=== PATIENT | male | born 1975 | race Caucasian/White ===

== ENCOUNTER 2018-04-01 14:20 | Emergency (ER) | payer BC ==
[2018-04-01 15:17] LABS: Potassium 4.3 mmol/L (3.5-5.1)
--- NOTE | 2018-04-01 15:37 | RAD REPORT ---
EXAM DESCRIPTION: CT - Stone Protocol - 04/01/2018 3:03 pm CLINICAL HISTORY: Right-sided abdominal and flank pain COMPARISON: None. TECHNIQUE: Axial 5 mm thick images were obtained without oral or IV contrast. The [id number] span s the entirety of the system including uppermost abdomen and lung bases. All CT scans are performed using dose optimization technique as appropriate and may include automated exposure control or mA/KV adjustment according to patient size. FINDINGS: Mild right-sided hydronephrosis is present secondary to a 4 mm stone right mid ureter. Rig ht kidney is edematous. There is minimal stranding in the perinephric fat. No other obstructing or no nobstructing calculi seen. No calculus within the contracted urinary bladder. No suspicious renal mas ses. Isodense masses and pyelonephritis are not excluded on a stone protocol CT scan. No left-sided o bstructing or nonobstructing calculi. Prostate gland and seminal vesicles are normal. Imaged portions of the liver, spleen and pancreas show no suspicious findings on non-contrast imaging . Patient has a diffuse fatty infiltration of the liver. Contracted gallbladder shows no suspicious f inding. No biliary tree dilatation. No significant adrenal finding. No suspicious bowel findings. Sigmoid diverticulosis present without diverticulitis. No mass or bulky lymphadenopathy. Patient has bilateral fat filled inguinal hernias. No free air, lalit e fluid or inflammatory stranding. No significant bony abnormality. IMPRESSION: Mild right-sided hydronephrosis secondary to a 4 mm right mid ureter stone. No other obs tructing or nonobstructing calculi. On a KUB projection the obstructing calculus is superimposed on the superior right sacral ala margin. Diffuse fatty infiltration of the liver. Isodense masses and pyelonephritis are not excluded on stone protocol technique.
[2018-04-01] MEDS ORDERED: KETOROLAC 30 MG/ML INJ ONE (15:43)
[2018-04-01] MEDS ORDERED: NA CHLORIDE 0.9% 1,000 ML ONE (15:43)
[2018-04-01] MEDS ORDERED: MAGNESIUM SULFATE 1 gm IVPB 1 GM/100 ML BAG IV ONE (15:51)
[2018-04-01] MEDS ORDERED: TAMSULOSIN 0.4 MG SR CAP ONE (15:51)
--- NOTE | 2018-04-01 16:28 | EDPHYS ---
Physician Documentation [facility] Name: Ferdinand Villagran Age: 42 yrs Sex: Male : 1975 Arrival Date: 04/01/2018 Time: 14:21 Bed 20 Private MD: Out, [facility] ED Physician Kamlesh Pierce HPI: 04/01 15:44 This 42 yrs old Male presents to ER via Ambulatory with complaints of Possible Kidney kb Stone. 15:44 The patient complains of pain in the right flank. The pain does not radiate. Onset: The kb symptoms/episode began/occurred this morning. Modifying factors: The symptoms are alleviated by nothing. the symptoms are aggravated by nothing. Associated signs and symptoms: The patient has no apparent associated signs or symptoms. Severity of pain: At its worst the pain was moderate in the emergency department the pain is unchanged. The patient has experienced a previous episode. The patient has not recently seen a physician. 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 - Social history:: Smoking status: Patient uses tobacco products, smokes one-half pack cigarettes per day. - Ebola Screening: : Patient denies travel to an Ebola-affected area in the 21 days before illness onset. ROS: 15:43 Constitutional: Negative for fever, chills, and weight loss, Cardiovascular: Negative kb for chest pain, palpitations, and edema, Respiratory: Negative for shortness of breath, cough, wheezing, and pleuritic chest pain, Abdomen/GI: Negative for abdominal pain, nausea, vomiting, diarrhea, and constipation, MS/Extremity: Negative for injury and deformity, Skin: Negative for injury, rash, and discoloration, Neuro: Negative for headache, weakness, numbness, tingling, and seizure. 15:43 : Positive for flank pain. Exam: 15:43 Constitutional: This is a well developed, well nourished patient who is awake, alert, kb and in no acute distress. Head/Face: Normocephalic, atraumatic. Chest/axilla: Normal chest wall appearance and motion. Nontender with no deformity. No lesions are appreciated. Cardiovascular: Regular rate and rhythm with a normal S1 and S2. No gallops, murmurs, or rubs. Normal PMI, no JVD. No pulse deficits. Respiratory: Lungs have equal breath sounds bilaterally, clear to auscultation and percussion. No rales, rhonchi or wheezes noted. No increased work of breathing, no retractions or nasal flaring. Abdomen/GI: Soft, non-tender, with normal bowel sounds. No distension or tympany. No guarding or rebound. No evidence of tenderness throughout. Skin: Warm, dry with normal turgor. Normal color with no rashes, no lesions, and no evidence of cellulitis. MS/ Extremity: Pulses equal, no cyanosis. Neurovascular intact. Full, normal range of motion. Neuro: Awake and alert, GCS 15, oriented to person, place, time, and situation. Cranial nerves II-XII grossly intact. Motor strength 5/5 in all extremities. Sensory grossly intact. Cerebellar exam normal. Normal gait. 15:43 Back: CVA tenderness, that is moderate, is noted on the right. Vital Signs: 14:30 BP 154 / 104; Pulse 95; Resp 20; Temp 98.6(O); Pulse Ox 95% on R/A; Weight 116.57 kg aj1 (R); Height 5 ft. 10 in. (177.80 cm); Pain 8/10; 14:30 Body Mass Index 36.88 (116.57 kg, 177.80 cm) aj1 MDM: 14:39 Patient medically screened. kb 15:43 Data reviewed: vital signs, nurses notes. Data interpreted: Pulse oximetry: on room air kb is 95 %. Interpretation: normal. Counseling: I had a detailed discussion with the patient and/or guardian regarding: the historical points, exam findings, and any diagnostic results supporting the discharge/admit diagnosis, lab results, radiology results, the need for outpatient follow up, a urologist, , to return to the emergency department if symptoms worsen or persist or if there are any questions or concerns that arise at home. 04/01 14:43 Order name: Urine Dipstick--Ancillary (enter results) bd 04/01 14:51 Order name: Basic Metabolic Panel; Complete Time: 15:29 kb 04/01 14:51 Order name: CT Stone Protocol; Complete Time: 15:39 kb 04/01 14:39 Order name: Urine Dipstick-Ancillary (obtain specimen); Complete Time: 14:41 kb Administered Medications: 15:58 Drug: TORadol 30 mg Route: IVP; Site: left antecubital; sv 16:24 Follow up: Response: No adverse reaction sv 15:58 Drug: NS 0.9% 1000 ml Route: IV; Rate: 1000 ml; Site: left antecubital; sv 16:42 Follow up: Response: No adverse reaction; IV Status: Completed infusion; IV Intake: sv 700ml ; Pt was ready to go. 15:58 Drug: Flomax 0.4 mg Route: PO; sv 16:24 Follow up: Response: No adverse reaction sv 15:58 Drug: Magnesium Sulfate 1 grams Route: IVPB; Infused Over: 30 mins; Site: left sv antecubital; 16:24 Follow up: Response: No adverse reaction; IV Status: Completed infusion; IV Intake: sv 100ml Disposition: 16:55 Co-signature as Attending Physician, Kamlesh Pierce MD. rn Disposition: 04/01/18 16:27 Discharged to Home. Impression: Calculus of kidney and ureter. - Condition is Stable. - Discharge Instructions: Kidney Stones, [id number], Dietary Guidelines to Help Prevent Kidney Stones. - Prescriptions for Tylenol- Codeine #3 300-30 mg Oral Tablet - take 1 tablet by ORAL route every 6 hours As needed; 15 tablet. Zofran 4 mg Oral Tablet - take 1 tablet by ORAL route every 6 hours As needed; 20 tablet. Flomax 0.4 mg Oral Capsule, Sust. Release 24 hr - take 1 capsule by ORAL route once daily 1/2 hour following the same meal each day; 10 capsule. Diclofenac Sodium 75 mg Oral Tablet, Delayed Release (E.C.) - take 1 tablet by ORAL route 2 times per day As needed; 30 tablet. Macrobid 100 mg Oral Capsule - take 1 capsule by ORAL route every 12 hours for 7 days; 14 capsule. - Medication Reconciliation Form, Thank You Letter, Antibiotic Education, Prescription Opioid Use, Work release form form. - Follow up: Emergency Department; When: As needed; Reason: Worsening of condition. Follow up: Private Physician; When: 2 - 3 days; Reason: Recheck today's complaints, Continuance of care, Re-evaluation by your physician. Signatures: Dispatcher [employer] ED Shwetha Herring, GIULIA DUMONT-Gely Ponce RN RN aj1 Nishi Saxena RN RN sv Kamlesh Pierce MD MD rn ent: (The following items were deleted from the chart) 16:43 16:27 04/01/2018 16:27 Discharged to Home. Impression: Calculus of kidney and ureter. sv Condition is Stable. Discharge Instructions: Kidney Stones, [id number], Dietary Guidelines to Help Prevent Kidney Stones. Prescriptions for Tylenol-Codeine #3 300-30 mg Oral Tablet - take 1 tablet by ORAL route every 6 hours As needed; 15 tablet, Zofran 4 mg Oral Tablet - take 1 tablet by ORAL route every 6 hours As needed; 20 tablet, Flomax 0.4 mg Oral Capsule, Sust. Release 24 hr - take 1 capsule by ORAL route once daily 1/2 hour following the same meal each day; 10 capsule, Diclofenac Sodium 75 mg Oral Tablet, Delayed Release (E.C.) - take 1 tablet by ORAL route 2 times per day As needed; 30 tablet, Macrobid 100 mg Oral Capsule - take 1 capsule by ORAL route every 12 hours for 7 days; 14 capsule. and Forms are Medication Reconciliation Form, Thank You Letter, Antibiotic Education, Prescription Opioid Use. Follow up: Emergency Department; When: As needed; Reason: Worsening of condition. Follow up: Private Physician; When: 2 - 3 days; Reason: Recheck today's complaints, Continuance of care, Re-evaluation by your physician. kb
--- NOTE | 2018-04-01 16:28 | ER ---
Nurse's Notes [facility] Name: Ferdinand Villagran Age: 42 yrs Sex: Male : 1975 Arrival Date: 04/01/2018 Time: 14:21 Bed 20 Private MD: Out, [facility] Diagnosis: Calculus of kidney and ureter Presentation: 04/01 14:25 Presenting complaint: Patient states: Right mid to lower back pain that started this aj1 morning but became severe 2 hours ago. Reports nausea. Denies urinary frequency, burning with urination. Transition of care: patient was not received from another setting of care. Onset of symptoms was April 01, 2018. Risk Assessment: Do you want to hurt yourself or someone else? Patient reports no desire to harm self or others. Initial Sepsis Screen: Does the patient meet any 2 criteria? HR > 90 bpm. No. Patient's initial sepsis screen is negative. Does the patient have a suspected source of infection? No. Patient's initial sepsis screen is negative. Care prior to arrival: None. 14:25 Method Of Arrival: Ambulatory aj 14:25 Acuity: MARCO ANTONIO 3 aj1 Triage Assessment: 14:30 General: Appears in no apparent distress. uncomfortable, Behavior is calm, cooperative, aj1 appropriate for age. Pain: Pain currently is 8 out of 10 on a pain scale. Cardiovascular: Patient's skin is warm and dry. Respiratory: Airway is patent Respiratory effort is even, unlabored, Respiratory pattern is regular, symmetrical. GI: Reports nausea. 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 - Social history:: Smoking status: Patient uses tobacco products, smokes one-half pack cigarettes per day. - Ebola Screening: : Patient denies travel to an Ebola-affected area in the 21 days before illness onset. Screenin:00 Abuse screen: Denies threats or abuse. Denies injuries from another. Nutritional sv screening: No deficits noted. Tuberculosis screening: No symptoms or risk factors identified. Fall Risk None identified. Assessment: 14:50 General: Appears in no apparent distress. uncomfortable, obese, Behavior is calm, sv cooperative, appropriate for age. Pain: Complains of pain in right mid back and right low back Pain currently is 8 out of 10 on a pain scale. Pain began this morning Is intermittent. Neuro: Level of Consciousness is awake, alert, obeys commands, Oriented to person, place, time, situation, Moves all extremities. Full function Gait is steady. Respiratory: Respiratory effort is even, unlabored, Respiratory pattern is regular, symmetrical. : Denies burning with urination, inability to void, pain urinary frequency, urgency. Derm: Skin is pink, warm \\T\\ dry. 15:58 Reassessment: Patient appears in no apparent distress at this time. No changes from previously documented assessment. Patient and/or family updated on plan of care and expected duration. Pain level reassessed. Patient is alert, oriented x 3, equal unlabored respirations, skin warm/dry/pink. 16:37 Reassessment: Patient appears in no apparent distress at this time. Patient and/or sv family updated on plan of care and expected duration. Pain level reassessed. Patient is alert, oriented x 3, equal unlabored respirations, skin warm/dry/pink. Vital Signs: 14:30 BP 154 / 104; Pulse 95; Resp 20; Temp 98.6(O); Pulse Ox 95% on R/A; Weight 116.57 kg aj1 (R); Height 5 ft. 10 in. (177.80 cm); Pain 8/10; 14:30 Body Mass Index 36.88 (116.57 kg, 177.80 cm) aj1 ED Course: 05:00 Patient has correct armband on for positive identification. Placed in gown. Bed in low sv position. Call light in reach. Door closed. Warm blanket given. Head of bed elevated. 14:21 Patient arrived in ED. sb2 14:21 Out, of Town is Private Physician. sb2 14:28 Triage completed. aj1 14:30 Arm band placed on Patient placed in an exam room. aj1 14:32 Nishi Saxena RN is Primary Nurse. sv 14:39 Shwetha Herring FNP-C is PHCP. kb 14:39 Kamlesh Pierce MD is Attending Physician. kb 14:55 Initial lab(s) drawn, by me, sent to lab. Inserted saline lock: 20 gauge in left sv antecubital area, using aseptic technique. Blood collected. Flushed left antecubital with 5 ml normal saline. 15:[address] via wheelchair. mw3 15:03 CT completed. Patient tolerated procedure well. Patient moved back from CT. mw3 15:03 Awaiting lab results, Awaiting radiology results. sv 15:04 CT Stone Protocol In Process Unspecified. EDMS 16:37 No provider procedures requiring assistance completed. IV discontinued, intact, sv bleeding controlled, No redness/swelling at site. Pressure dressing applied. Administered Medications: 15:58 Drug: TORadol 30 mg Route: IVP; Site: left antecubital; sv 16:24 Follow up: Response: No adverse reaction sv 15:58 Drug: NS 0.9% 1000 ml Route: IV; Rate: 1000 ml; Site: left antecubital; sv 16:42 Follow up: Response: No adverse reaction; IV Status: Completed infusion; IV Intake: sv 700ml ; Pt was ready to go. 15:58 Drug: Flomax 0.4 mg Route: PO; sv 16:24 Follow up: Response: No adverse reaction sv 15:58 Drug: Magnesium Sulfate 1 grams Route: IVPB; Infused Over: 30 mins; Site: left sv antecubital; 16:24 Follow up: Response: No adverse reaction; IV Status: Completed infusion; IV Intake: sv 100ml Intake: 16:24 IV: 100ml; Total: 100ml. sv 16:42 IV: 700ml; Total: 800ml. sv Outcome: 16:27 Discharge ordered by . kb 16:38 Discharged to home ambulatory. sv 16:38 Condition: stable 16:38 Discharge instructions given to patient, Instructed on discharge instructions, follow up and referral plans. no drinking with medication, no driving heavy equipment, medication usage, Demonstrated understanding of instructions, follow-up care, medications, Prescriptions given X x5 16:43 Patient left the ED. sv Signatures: Dispatcher [employer] EDMS Shwetha Herring, Gely Wang RN RN aj1 Nishi Saxena RN RN sv Veronica Bhardwaj sb2 Karen Delong mw3
[2018-04-01 18:30] LABS: Urine Blood 2+ (NEG); Urine Glucose NEGATIVE (NEG); Urine Protein NEGATIVE (NEG); Urine pH 5.5 (5.0-7.0)
== END 2018-04-01 16:43 | disposition home or self-care (01) ==
LOC: ER 14:20
DX: N20.2 Calculus of kidney with calculus of ureter (principal); F17.210 Nicotine dependence, cigarettes, uncomplicated; E78.5 Hyperlipidemia, unspecified; Z91.048 Other nonmedicinal substance allergy status
CPT/HCPCS: 36415; 74176; 76377; 80048; 81003; 96361; 96365; 96375; 99284; J3475; J7030